=== PATIENT | male | born 1950 | race Caucasian/White ===

== ENCOUNTER → 2019-05-28 | Outpatient (CLI) | payer OTHER, BC ==
[~2019-05-28] MED LIST: ACHD5005 PO; COEN1CAP2 PO; DOCU100C37 PO; LISI10TA2 PO; METH500T7 PO; NAPR-1073 PO; ROSU10TA22 PO; ROSU20TA2 PO
--- NOTE | 2019-05-28 09:54 | Diagnostic Imaging Report ---
INDICATION: Pain to the right 4th finger. Time of exam: 9:31 AM 3 views of the right 4th finger were obtained. The 4th metacarpal is intact. The proximal and middle phalanx of the 4th finger appears intact. There is fracture at the base of the distal phalanx, dorsal side. This appears to be somewhat corticated and may represent an old ununited fracture or dislocation. No other abnormalities are seen. IMPRESSION: Age-indeterminate fracture at the base of the distal phalanx, dorsal side. This could represent an old nonhealed fracture. No other abnormality is seen. Dictated by: Dictated on workstation # [id number]
== END ==
LOC: RAD 09:00
PROVIDERS: ATTEND Family Medicine
DX: S62.634A Displaced fracture of distal phalanx of right ring finger, initial encounter for closed fracture (principal); V29.9XXA Motorcycle rider (driver) (passenger) injured in unspecified traffic accident, initial encounter
CPT/HCPCS: 73140

== ENCOUNTER 2020-06-29 05:33 | Outpatient (RCR) | payer BC ==
[~2020-06-29] VITALS: Ht 172 cm; Wt 90.9 kg
[~2020-06-29 05:33] MED LIST changes: +ATOR10TA PO; +LOSA50TA2 PO; +MULT-1136 PO; +OMG1KC PO
== END 2020-06-29 09:42 | disposition home or self-care (01) ==
LOC: PREOP 05:33
PROVIDERS: ATTEND Specialist
DX: Z01.812 Encounter for preprocedural laboratory examination (principal); H26.9 Unspecified cataract; Z20.828 Contact with and (suspected) exposure to other viral communicable diseases
CPT/HCPCS: 87635

== ENCOUNTER 2020-07-01 07:29 | Day surgery (SDC) | payer BC, MEDICARE ==
[~2020-07-01] VITALS: Ht 172 cm; Wt 90.9 kg
[2020-07-01 07:45] VITALS: BP 147/114
[2020-07-01] MEDS ORDERED: MIDAZOLAM 2 MG/2 ML (VERSED) VIAL ONE (07:59)
[2020-07-01] MEDS ORDERED: TIMOLOL MALEATE 0.5% 5 ML (TIMOPTIC) BTL OU PRN (08:00)
[2020-07-01] MEDS ORDERED: POVIDONE (BETADINE) OPHTH SOLN 5% 30 ML OP ONE (08:00)
[2020-07-01] MEDS ORDERED: MOXIFLOXACIN OPHTH SOLN 5 MG/ML 0.3 ML SYRINGE OP ONE (08:00)
[2020-07-01] MEDS ORDERED: LIDOCAINE PF 1% 2 ML VIAL IR PRN (08:00)
[2020-07-01] MEDS: TETRACAINE 0.5% OPHTH SOLN 4 ML BTL (SINGLE DOSE ONLY) OU PRN ×4 (08:02→08:37)
[2020-07-01] MEDS: TROPICAMIDE 1% OPH SOLN (MYDRIACYL) 15 ML BTL OP SCH ×3 (08:20→08:37)
[2020-07-01] MEDS: PHENYLEPHRINE 10% OPHTH (NEO-SYN) 5 ML BTL OU SCH ×3 (08:21→08:37)
--- NOTE | 2020-07-01 08:38 | Ophthalmologist Pre-Op Note ---
Pre-Operative Progress Note H&P Reviewed The H&P was reviewed, patient examined and no changes noted. Date H&P Reviewed: Jul 01, 2020 Time H&P Reviewed: 08:37 Pre-Op Dx Cataract, Right Eye CORKY LAWTON MD Jul 01, 2020 08:38
--- NOTE | 2020-07-01 09:11 | Ophthalmology Operative Report ---
Cataract removal/placement IOL PREOPERATIVE DIAGNOSIS: Cataract Right Eye POSTOPERATIVE DIAGNOSIS: Cataract Right Eye PROCEDURE: Cataract removal and placement of posterior chamber implant, right eye SURGEON: Michael Lawton ANESTHESIA: Topical with sedation COMPLICATIONS: None ESTIMATED BLOOD LOSS: Minimal DESCRIPTION OF PROCEDURE: After proper informed consent was obtained, the patient, a 70 male, was taken to the Operating Room and the right eye was anesthetized with tetracaine. The right eye was then prepped and draped in the usual manner. A wire lid speculum was placed. A paracentesis was made at the left hand position. Preservative free lidocaine was injected into the anterior chamber followed by viscoelastic. A clear corneal incision was made in the temporal position. A capsulorrhexis was preformed and the central nuclear and cortical material were removed. The posterior capsule was polished and Marlon [id number] 20.5 IOL was placed into the capsular bag. The residual viscoelastic was aspirated and balanced saline solution was injected into the anterior chamber. Moxifloxacin was injected into the anterior chamber. The wound was checked and found to be water tight. The patient tolerated the procedure well without complications. MICHAEL LAWTON MD Jul 01, 2020 09:11
[2020-07-01 09:25] VITALS: BP 146/93
[2020-07-01] MEDS ORDERED: acetaZOLAMIDE ER 500 MG CAP (DIAMOX SEQUELS) PO ONE (10:00)
--- NOTE | 2020-07-01 10:15 | Anesthesia-General Post-Op ---
MAC Patient Condition Mental Status/LOC: Same as Preop Cardiovascular: Satisfactory Nausea/Vomiting: Absent Respiratory: Satisfactory Pain: Controlled Complications: Absent Post Op Complications Complications None Follow Up Care/Instructions Patient Instructions None needed. Anesthesiology Discharge Order Discharge Order Patient is doing well, no complaints, stable vital signs, no apparent adverse anesthesia problems. No complications reported per nursing. EMILE RAMON CRNA Jul 01, 2020 10:15
== END 2020-07-01 09:25 | disposition home or self-care (01) ==
LOC: SDC 07:29
PROVIDERS: ATTEND Specialist
DX: H25.11 Age-related nuclear cataract, right eye (principal); I10 Essential (primary) hypertension; M06.9 Rheumatoid arthritis, unspecified; Z79.899 Other long term (current) drug therapy; Z83.3 Family history of diabetes mellitus

== ENCOUNTER 2020-07-12 05:53 | Outpatient (RCR) | payer BC | END 2020-07-12 14:01 | disposition home or self-care (01) | LOC: PREOP 05:53 | PROVIDERS: ATTEND Specialist | DX: Z01.818 Encounter for other preprocedural examination (principal); H25.12 Age-related nuclear cataract, left eye; Z20.828 Contact with and (suspected) exposure to other viral communicable diseases | CPT/HCPCS: 87635 ==

== ENCOUNTER 2020-07-15 08:25 | Day surgery (SDC) | payer BC ==
[~2020-07-15] VITALS: Ht 172 cm; Wt 90.9 kg
[2020-07-15 08:25] VITALS: BP 144/100
[2020-07-15] MEDS: TETRACAINE 0.5% OPHTH SOLN 4 ML BTL (SINGLE DOSE ONLY) OU PRN ×4 (08:42→09:10)
[2020-07-15] MEDS ORDERED: POVIDONE (BETADINE) OPHTH SOLN 5% 30 ML OP ONE (08:45)
[2020-07-15] MEDS ORDERED: LIDOCAINE PF 1% 2 ML VIAL IR PRN (08:45)
[2020-07-15] MEDS ORDERED: TIMOLOL MALEATE 0.5% 5 ML (TIMOPTIC) BTL OU PRN (08:45)
[2020-07-15] MEDS ORDERED: MOXIFLOXACIN OPHTH SOLN 5 MG/ML 0.3 ML SYRINGE OP ONE (08:45)
[2020-07-15] MEDS: PHENYLEPHRINE 10% OPHTH (NEO-SYN) 5 ML BTL OU SCH ×3 (08:55→09:10)
[2020-07-15] MEDS: TROPICAMIDE 1% OPH SOLN (MYDRIACYL) 15 ML BTL OP SCH ×3 (08:55→09:10)
[2020-07-15] MEDS ORDERED: MIDAZOLAM 2 MG/2 ML (VERSED) VIAL ONE (09:02)
--- NOTE | 2020-07-15 09:22 | Ophthalmologist Pre-Op Note ---
Pre-Operative Progress Note H&P Reviewed The H&P was reviewed, patient examined and no changes noted. Date H&P Reviewed: Jul 15, 2020 Time H&P Reviewed: 09:15 Pre-Op Dx Cataract, Left Eye CORKY LAWTON MD Jul 15, 2020 09:22
--- NOTE | 2020-07-15 09:41 | Ophthalmology Operative Report ---
Cataract removal/placement IOL PREOPERATIVE DIAGNOSIS: Cataract Left Eye POSTOPERATIVE DIAGNOSIS: Cataract Left Eye PROCEDURE: Cataract removal and placement of posterior chamber implant, left eye SURGEON: Michael Lawton ANESTHESIA: Topical with sedation COMPLICATIONS: None ESTIMATED BLOOD LOSS: Minimal DESCRIPTION OF PROCEDURE: After proper informed consent was obtained, the patient, a 70 male, was taken to the Operating Room and the left eye was anesthetized with tetracaine. The left eye was then prepped and draped in the usual manner. A wire lid speculum was placed. A paracentesis was made at the left hand position. Preservative free lidocaine was injected into the anterior chamber followed by viscoelastic. A clear corneal incision was made in the temporal position. A capsulorrhexis was preformed and the central nuclear and cortical material were removed. The posterior capsule was polished and an Marlon [id number] 20.5 was placed into the capsular bag. The residual viscoelastic was aspirated and balanced saline solution was injected into the anterior chamber. Moxifloxacin was injected into the anterior chamber. The wound was checked and found to be water tight. The patient tolerated the procedure well without complications. MICHAEL LAWTON MD Jul 15, 2020 09:41
[2020-07-15 09:48] VITALS: BP 143/99
[2020-07-15] MEDS ORDERED: acetaZOLAMIDE ER 500 MG CAP (DIAMOX SEQUELS) PO ONE (10:00)
--- NOTE | 2020-07-15 11:07 | Anesthesia-General Post-Op ---
MAC Patient Condition Mental Status/LOC: Same as Preop Cardiovascular: Satisfactory Nausea/Vomiting: Absent Respiratory: Satisfactory Pain: Controlled Complications: Absent Post Op Complications Complications None Follow Up Care/Instructions Patient Instructions None needed. Anesthesiology Discharge Order Discharge Order Patient is doing well, no complaints, stable vital signs, no apparent adverse anesthesia problems. No complications reported per nursing. ZHEN RIVAS CRNA Jul 15, 2020 11:07
== END 2020-07-15 09:48 | disposition home or self-care (01) ==
LOC: SDC 08:25
PROVIDERS: ATTEND Specialist
DX: H25.12 Age-related nuclear cataract, left eye (principal); I10 Essential (primary) hypertension; M10.9 Gout, unspecified; Z79.899 Other long term (current) drug therapy; Z83.3 Family history of diabetes mellitus
CPT/HCPCS: 66984; V2787

== ENCOUNTER → 2021-01-06 | Outpatient (CLI) | payer BC ==
[~2021-01-06] MED LIST changes: -LISI10TA2 PO; +LISI10TA25 PO; +METH-731 PO; -METH500T7 PO
== END ==
LOC: LABNPT 06:27
PROVIDERS: ATTEND Emergency Medicine
DX: Z01.812 Encounter for preprocedural laboratory examination (principal); Z20.822 Contact with and (suspected) exposure to COVID-19
CPT/HCPCS: 87635

== ENCOUNTER → 2022-03-12 | Outpatient (CLI) | payer BC ==
[~2022-03-12] MED LIST changes: +NF-CRES10T PO; -ROSU10TA22 PO
--- NOTE | 2022-03-12 13:19 | Diagnostic Imaging Report ---
INDICATION: Right hip pain 2 views of the right hip show mild narrowing of the superior aspect of the joint space with small osteophytes forming at the superior lateral margins. 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 No fracture or acute abnormality seen. Dictated by: Dictated on workstation # [id number]
== END ==
LOC: RAD 12:20
PROVIDERS: ATTEND Family Medicine
DX: M16.11 Unilateral primary osteoarthritis, right hip (principal)
CPT/HCPCS: 73502

== ENCOUNTER → 2022-05-31 | Outpatient (CLI) | payer BC ==
--- NOTE | 2022-05-31 15:17 | Diagnostic Imaging Report ---
PROCEDURE: MRI lumbar spine. TECHNIQUE: Multiplanar, multisequence MRI of the lumbar spine was performed without contrast. INDICATION: Right sciatica No prior examination available for comparison. FINDINGS: The alignment of the lumbar spine is normal. The vertebral body heights are well-maintained. No spondylolysis or spondylolisthesis. No fractures are identified. Conus medullaris seen at L1 zone appearance. At T12-L1 there is mild facet disease however no spinal or neural foraminal encroachment. At L1-L2 there is some facet disease and thickening of the ligamentum flavum. There is no spinal stenosis. There is no neural foraminal encroachment. At L2-L3 there is minimal annular bulging and mild facet disease. Slight effacement of thecal sac and some minimal neural foraminal encroachment. At L3-L4 there is some annular bulging facet disease and thickening ligamentum flavum. There is slight effacement of ventral thecal sac and mild bilateral neural foraminal encroachment. At L4-L5 there is some annular bulging facet disease and thickening ligamentum flavum. There is mild spinal stenosis with some encroachment lateral recess bilaterally and moderate bilateral neural foraminal encroachment. At L5-S1 there is some annular bulging and facet disease. Some encroachment of the lateral recess bilaterally, left greater than right. There is moderate bilateral neural foraminal encroachment. The aorta is nonaneurysmal. There is a left renal cyst. There are no other focal soft tissue abnormalities. IMPRESSION: Lower lumbar spondylosis and degenerative disc disease as described Dictated by: Dictated on workstation # [id number]
== END ==
LOC: RAD 09:31
PROVIDERS: ATTEND Family Medicine
DX: M47.816 Spondylosis without myelopathy or radiculopathy, lumbar region (principal); M47.817 Spondylosis without myelopathy or radiculopathy, lumbosacral region; M51.26 Other intervertebral disc displacement, lumbar region; M51.27 Other intervertebral disc displacement, lumbosacral region; M48.061 Spinal stenosis, lumbar region without neurogenic claudication; M48.07 Spinal stenosis, lumbosacral region; N28.1 Cyst of kidney, acquired
CPT/HCPCS: 72148

== ENCOUNTER 2022-11-28 06:00 | Outpatient (CLI) | payer BC ==
[~2022-11-28] VITALS: Ht 175.3 cm; Wt 103.9 kg
[2022-11-29] MEDS ORDERED: LOSA100T57 PO (09:29)
== END 2022-11-29 09:36 | disposition home or self-care (01) ==
LOC: PREOP 06:00
PROVIDERS: ATTEND Surgery
DX: Z01.818 Encounter for other preprocedural examination (principal)

== ENCOUNTER 2022-12-10 07:45 | Day surgery (SDC) | payer BC ==
[~2022-12-10] VITALS: Ht 175 cm; Wt 103.9 kg
[~2022-12-10 07:45] MED LIST changes: +LOSA100T57 PO
[2022-12-10] MEDS ORDERED: LACTATED RINGERS 1,000 ML IV STA (07:57)
[2022-12-10 08:07] VITALS: BP 151/88
--- NOTE | 2022-12-10 08:36 | Progress Note-Pre Operative ---
Pre-Operative Progress Note Date of Available H&P: Nov 20, 2022 Date H&P Reviewed: December 10, 2022 Time H&P Reviewed: 08:30 History & Physical: H&P Reviewed, Patient Examed, No changes noted Pre-Operative Diagnosis: Screening BLAIRE MYERS DO December 10, 2022 08:36
[2022-12-10] MEDS ORDERED: PROPOFOL INJECTION 50 ML IV ONE (09:19)
--- NOTE | 2022-12-10 09:48 | Anesthesia-General Post-Op ---
MAC Patient Condition Mental Status/LOC: Same as Preop Cardiovascular: Satisfactory Nausea/Vomiting: Absent Respiratory: Satisfactory Pain: Controlled Complications: Absent Post Op Complications Complications None Follow Up Care/Instructions Patient Instructions None needed. Anesthesiology Discharge Order Discharge Order Patient is doing well, no complaints, stable vital signs, no apparent adverse anesthesia problems. No complications reported per nursing. EMILE RAMON CRNA December 10, 2022 09:48
[2022-12-10 09:50] VITALS: BP 96/56
--- NOTE | 2022-12-10 09:51 | Progress Note-Post Operative ---
Post-Operative Progess Note Surgeon (s)/Pigment Furnace Tender (s) Surgeon BLAIRE MYERS DO Pigment Furnace Tender: DAVID Loco Student Pre-Operative Diagnosis Screening Post-Operative Diagnosis Polyps diverticula int and ext hemorrhoids Procedure & Operative Findings Date of Procedure 12/10/22 Procedure Performed/Findings Colonoscopy with Snare polypectomy PROCEDURE NOTE: After informed consent was obtained, the patient was brought to the endoscopy suite, placed in bed in left lateral decubitus position. He was administered IV sedation by the ELEMENTARY SCHOOL ART TEACHER who then monitored his vitals the entire time, heart rate, blood pressure and pulse ox and the scope was inserted, pushed all the way to about 150 cm and pushed into the cecum, took a picture of appendiceal orifice and noted the ileocecal valve. Then slowly withdrew the scope insufflating to look circumferentially at the fraire starting in the cecum and up the ascending colon where I found a cluster of polyps; removed with snare. Then more distal found another polyp which was also removed with hot snare. I saw some diverticula on the right side and took a picture of them. Continue up to the hepatic flexure, then down the transverse colon to the splenic flexure, into the descending colon down into the sigmoid and then into the rectal vault and retroflexed the scope. Took a picture of the internal hemorrhoids. I also removed the scope and took a picture of the external hemorrhoids. The patient tolerated the procedure. He was recovered in endoscopy suite. Recommended for repeat colonoscopy in 5 years. Anesthesia Type IV sedation by ELEMENTARY SCHOOL ART TEACHER Estimated Blood Loss Estimated blood loss (mL): scant Specimens/Packing Specimens Removed asc colon polyp x 2 BLAIRE MYERS DO December 10, 2022 09:51
--- NOTE | 2022-12-10 09:52 | Endoscopy Discharge Instruct ---
Endo Procedure/Findings Findings 1.: Polyp 2.: Diverticulosis 3.: Internal Hemorrhoids Discharge Instructions - Activity: You might feel a little sleepy until tomorrow. This is due to the medicine you received to relax you. Until tomorrow, you should: NOT drive a car, operate machinery or power tools. NOT drink any alcoholic beverages. NOT make any important decisions or sign importortant papers. Do not return to work until tomorrow, unless otherwise instructed. Resume previous activities tomorrow. Diet: Start by taking liquids. If you tolerate liquids, advance to solid food. 1.: Colonscopy in 5 years Notify Physician - If you experience excessive bleeding, unusual abdominal pain, fever, or chest pain, contact your doctor immediately. Follow-Up: Other Follow up in my office in one week BLAIRE MYERS DO December 10, 2022 09:52
[2022-12-10 09:54] VITALS: BP 99/59
[2022-12-10 09:59] VITALS: BP 105/60
[2022-12-10 10:00] VITALS: BP 127/97
[2022-12-10 10:15] VITALS: BP 127/97
== END 2022-12-10 10:33 | disposition home or self-care (01) ==
LOC: ENDO 07:45
PROVIDERS: ATTEND Surgery
DX: Z12.11 Encounter for screening for malignant neoplasm of colon (principal); D12.2 Benign neoplasm of ascending colon; K57.30 Diverticulosis of large intestine without perforation or abscess without bleeding; K64.8 Other hemorrhoids; K64.4 Residual hemorrhoidal skin tags; M25.862 Other specified joint disorders, left knee; E66.9 Obesity, unspecified; Z68.33 Body mass index [BMI] 33.0-33.9, adult

== ENCOUNTER 2022-12-19 05:36 | Outpatient (CLI) | payer BC ==
[~2022-12-19] VITALS: Ht 175.2 cm; Wt 103.8 kg
[2022-12-19] MEDS ORDERED: ROSU5TAB13 PO (08:58)
[2022-12-19] MEDS ORDERED: MELO15TA39 PO (08:58)
[2022-12-19] MEDS ORDERED: ATOR10TA66 PO (08:58)
[2022-12-19] MEDS ORDERED: GABA300C PO (08:58)
[2022-12-19] MEDS ORDERED: FISH OIL (16:51)
== END 2022-12-19 17:02 | disposition home or self-care (01) ==
LOC: PREOP 05:36
PROVIDERS: ATTEND Surgery
DX: Z01.818 Encounter for other preprocedural examination (principal)

== ENCOUNTER 2022-12-26 11:41 | Day surgery (SDC) | payer BC ==
[2022-12-26] VITALS (7 sets, daily range): BP systolic 111–170; BP diastolic 68–103
[~2022-12-26] VITALS: Ht 175.2 cm; Wt 103.8 kg
[~2022-12-26 11:41] MED LIST changes: +ATOR10TA66 PO; +FISH OIL; +GABA300C PO; +MELO15TA39 PO; +ROSU5TAB13 PO
[2022-12-26] MEDS ORDERED: BUP/EPI 0.5% 1:200,000 (SENSORCAINE) 30 ML VIAL ONE (11:57)
[2022-12-26] MEDS ORDERED: ceFAZolin INJECTION 2,000 MG in NS (IVPB) 50 ML IV ONE (12:00)
[2022-12-26] MEDS ORDERED: LACTATED RINGERS 1,000 ML IV PRN (12:00)
[2022-12-26] MEDS ORDERED: PROPOFOL INJECTION 50 ML IV ONE (12:02)
[2022-12-26] MEDS ORDERED: MIDAZOLAM 2 MG/2 ML (VERSED) VIAL ONE (12:02)
[2022-12-26] MEDS ORDERED: ceFAZolin INJECTION 2,000 MG ONE (12:17)
[2022-12-26] MEDS ORDERED: NS (IVPB) 50 ML ONE (12:17)
[2022-12-26] MEDS ORDERED: ACHD5005 PO (12:49)
--- NOTE | 2022-12-26 12:49 | Progress Note-Post Operative ---
Post-Operative Progess Note Surgeon (s)/Chemical Processor (s) Surgeon BLAIRE MYERS DO Chemical Processor: DAVID Loco student Pre-Operative Diagnosis LEFT LEG MASS, site marked Post-Operative Diagnosis same pending path Procedure & Operative Findings Date of Procedure 12/26/22 Procedure Performed/Findings Excision of Left leg mass, 2.2 cm incision Anesthesia Type IV sedation by WOODS OVERSEER Estimated Blood Loss Estimated blood loss (mL): scant Specimens/Packing Specimens Removed left leg mass BLAIRE MYERS DO December 26, 2022 12:49
--- NOTE | 2022-12-26 12:51 | Discharge Inst-Surgical ---
Discharge Inst-Surgical Depart Medication/Instructions New, Converted or Re-Newed RX: Transmitted to Pharmacy Patient Instructions Follow up Appt: Make appointment for 1 week. [phone] Instructions: No lifting greater than 20 pounds. No strenuous activity. May shower in 24 hours, no tub bath or soaking. Use incentive spirometer at home as directed. No Smoking Skin/Wound Care: May remove bandages in am. You need to leave the sutures in place and come to office to have them removed Symptoms to Report: Appetite Changes, Extremity Discoloration, Numbness/Tingling, Swelling Increased, Bleeding Excessive, Eyesight Changes, Pain Increased, Urine Color Change, Constipation(Persistent), Fever over 101 degree F, Pain/Pressure in chest, Urinating Difficulty, Cough Up/Vomit Blood, Heart Beat Irreg/Pounding, Pain/Pressure in jaw, Cramps in feet or legs, Lightheadedness, Pain/Pressure in shoulder, Diarrhea(Persistent), Memory Changes Suddenly, Questions/Concerns, Weight gain consecutive days, Dizziness/Fainting, Nausea/Vomiting, Shortness of Breath, Weight gain over 2 pounds If questions or concerns contact your physician Or seek help at emergency department. Activity Activity as Tolerated: Yes Driving Instructions: No Driving/Refer to Dr. Watts Discharge Diet: No Restrictions Diet After 24 Hours: Clear Liquid if Nauseous If Any Problems/Questions/Issu: Contact Your Physician, Go to Emergency Room Skin/Wound Care Infection Signs and Symptoms: Increased Redness, Foul Odor of Wound, Increased Drainage, Skin Itchy or Has a Rash, Increased Swelling, Temperature Above 101 F Bathing Instructions: Shower Stitches/Jimmy/Dermabond Dis: Care of BLAIRE Ledesma DO December 26, 2022 12:51
--- NOTE | 2022-12-26 12:59 | Anesthesia-General Post-Op ---
MAC Patient Condition Mental Status/LOC: Same as Preop Cardiovascular: Satisfactory Nausea/Vomiting: Absent Respiratory: Satisfactory Pain: Controlled Complications: Absent Post Op Complications Complications None Follow Up Care/Instructions Patient Instructions None needed. Anesthesiology Discharge Order Discharge Order Patient is doing well, no complaints, stable vital signs, no apparent adverse anesthesia problems. No complications reported per nursing. SHARMAINE RUIZ CRNA December 26, 2022 12:59
[2022-12-26] MEDS ORDERED: fentaNYL INJ 100 MCG/2 ML AMP IVP ONE (13:00)
[2022-12-26] MEDS ORDERED: MEPERIDINE (DEMEROL) INJ 50 MG/ML IVP ONE (13:00)
[2022-12-26] MEDS ORDERED: ONDANSETRON 4 MG/2 ML (SDV) Z0FRAN IVP PRN (13:00)
[2022-12-26] MEDS ORDERED: morphine INJ 10 MG/ML 1ML (SYR OR VIAL) IVP ONE (13:00)
--- NOTE | 2022-12-26 21:45 | OPERATIVE REPORT ---
DATE OF SERVICE: 12/26/2022 PREOPERATIVE DIAGNOSIS: Left leg mass. POSTOPERATIVE DIAGNOSIS: Left leg mass, pending pathology. PROCEDURE: Excision of left leg mass, approximately 2.2 cm incision. This is subcutaneous mass. SURGEON: Justin Salinas DO WORKERS COMPENSATION CLAIMS EXAMINER: DAVID Loco student. ANESTHESIA: IV sedation by BRAND ATTENDANT. SPECIMENS: Left leg mass sent to pathology. BLOOD LOSS: Scant. FLUIDS: Per anesthesia. POSTOPERATIVE CONDITION: Stable. INDICATIONS FOR PROCEDURE: The patient is a 72-year-old male who has a mass on the left leg. It was just below the knee on the medial aspect of the leg. Very tender to palpation. Elected to remove this in the OR, made a 2.2 cm incision to be able to get this out, removed en bloc and sent it off the table to pathology. PROCEDURE NOTE: After informed consent was obtained, the patient was brought to the operating room and placed on the table in supine position. Left leg was frog legged out. He was sterilely prepped and draped in normal fashion. Local lidocaine used to infiltrate the skin above this mass and then made an incision with #15 blade, carried down through skin into subcutaneous tissue, deepened down to subcutaneous tissue with Bovie electrocautery down to the mass and then dissected around this and removed this en bloc, passed this off the table. Hemostasis obtained using Bovie electrocautery, copiously irrigated with normal saline. I then elected to close the incision. We measured it first was 2.2 cm. I then closed the incision with a 3-0 Prolene three interrupted vertical mattress sutures. Area was cleaned and dried, dressing placed. The patient tolerated the procedure. Sponge and needle count correct at the end of the case. Job ID: [id number] DocumentID: [id number] Dictated Date: 12/26/2022 15:52:12 Trumpet Player Date: 12/26/2022 21:43:00 Dictated By: JUSTIN SALINAS DO [facility]
== END 2022-12-26 14:32 | disposition home or self-care (01) ==
LOC: SDC 11:41
PROVIDERS: ATTEND Surgery
DX: D21.22 Benign neoplasm of connective and other soft tissue of left lower limb, including hip (principal); D12.2 Benign neoplasm of ascending colon; M25.869 Other specified joint disorders, unspecified knee; K57.30 Diverticulosis of large intestine without perforation or abscess without bleeding; K64.0 First degree hemorrhoids; K64.4 Residual hemorrhoidal skin tags
CPT/HCPCS: 87081; 88305; 88341; 88342